=== PATIENT | female | born 1935 | race Caucasian/White ===

== ENCOUNTER → 2018-10-17 08:51 | Outpatient (CLI) | payer MEDICARE, OTHER, SELFPAY ==
--- NOTE | 2018-10-17 | DI.ECHO.S_ITS ---
[facility] +---------+ : : [address] : [address] : : : : [id number] : : : : Phone: [phone]+ Echocardiogram Report + + :Name: CHAYITO ABEBE Study Date: 10/17/2018 Height: 64 in : :[facility] Exam Location: [facility] Weight: 175 lb : : Gender: Female BSA: 1.8 m2 : :: 1935 Age: 83 yrs BP: 147/71 mmHg: :Reason For Study: : : Performed By: Ian Hunt : :Referring: MAINOR CAR : + + Interpretation Summary 1) Mildly increased left ventricular wall thickness with normal size, normal wall motion, and normal systolic function (EF 60-65%). 2) Normal right ventricular size and function. 3) Diastolic parameters suggest a pseudonormalization pattern, consistent with probable elevated filling pressures. 4) There is mild to moderate aortic stenosis (valve area by planimetry is 1.4cm2, mean gradient 21mmHg, calculated valve area underestimated at 0.84cm2). There is mild to moderate aortic regurgitation. 5) No prior Echo available for comparison. Procedure: A two-dimensional transthoracic echocardiogram with color flow and Doppler was performed. The study quality was technically good. There is no prior echocardiogram noted for this patient. The patient was in normal sinus rhythm during the exam. Left Ventricle: The left ventricle is normal in size. Left ventricular wall thickness is mildly increased. The ejection fraction is estimated to be 60- 65%. Left ventricular systolic function is normal. There are no focal wall motion abnormalities. Diastolic parameters suggest a pseudonormalization pattern, consistent with probable elevated filling pressures. Right Ventricle: The right ventricle is normal in size and function. Atria: The left atrium is moderately dilated. The right atrium is normal in size. The interatrial septum is intact with no evidence for an atrial septal defect. Mitral Valve: There is mild mitral annular calcification. There is trace mitral regurgitation. Aortic Valve: The aortic valve is trileaflet. The aortic valve is moderately calcified. The peak aortic velocity is 2.96 m/sec. The aortic valve area is 1.4 centimeters squared by planimetry. There is mild to moderate aortic stenosis. There is mild to moderate aortic regurgitation. Tricuspid Valve: The tricuspid valve is normal in structure and function. There is trace tricuspid regurgitation. The right ventricular systolic pressure is estimated to be at least 27 mmHg based on an estimated right atrial pressure of 3 mm Hg. Pulmonic Valve: The pulmonic valve is normal in structure and function. There is trace pulmonic regurgitation. Great Vessels: The aortic root is normal size. The dimensions of the ascending aorta are normal. The pulmonary artery is normal size. The IVC is of normal diameter and collapses greater than 50% with a sniff. This suggests a low right atrial pressure of 3 mm Hg. Pericardium/ Pleura There is no pericardial effusion. There is no pleural effusion. MMode/2D Measurements & Calculations LVIDd: 4.9 cm LVOT diam: 2.0 cm LVIDs: 3.2 cm Ao root diam: 2.9 cm FS: 35.1 % Aortic Jxn: 2.2 cm EPSS: 0.53 cm asc Aorta Diam: 3.3 cm IVSd: 1.2 cm Ao Arch Diam (Prox Trans): 2.5 cm LVPWd: 1.0 cm LV real. diameter/BSA (cm/m^2): 2.6 LV sys. diameter/BSA (cm/m^2): 1.7 LA dimension: 4.1 cm RA long axis: 5.3 cm LA A2 area: 23.7 cm2 RA area: 19.2 cm2 LA A4 area: 25.9 cm2 RA vol: 58.6 ml LA length (vol): 6.1 cm RA : 31.7 ml/m2 LA vol: 85.4 ml IVC diam: 1.8 cm LA vol index: 46.2 ml/m2 STEPHEN (plan): 1.4 cm2 Doppler Measurements & Calculations Ao V2 max: 296.1 cm/sec LVOT Max Boni: 80.0 cm/sec Ao V2 mean: 224.9 cm/sec LV V1 max P.6 mmHg Ao max P.1 mmHg LV V1 VTI: 15.8 cm Ao mean P.1 mmHg STEPHEN(I,D): 0.70 cm2 Ao V2 VTI: 69.8 cm STEPHEN(V,D): 0.84 cm2 sev ratio: 0.23 STEPHEN indexed to BSA (cm^2/m^2): 0.38 AI P1/2t: 460.0 msec AI dec slope: 305.6 cm/sec2 MV E max boni: 138.6 cm/sec TR max boni: 244.3 cm/sec MV A max boni: 113.9 cm/sec TR max P.9 mmHg MV E/A: 1.2 PA V2 max: 94.2 cm/sec Med Peak E' Boni: 3.8 cm/sec PA V2 mean: 65.3 cm/sec E/E' med: 36.3 PA mean P.9 mmHg Lat Peak E' Boni: 5.4 cm/sec PA pr(Accel): 34.1 mmHg E/E' lat: 25.8 PA Accel Time: 0.09 sec E/e' average: 31.1 MV dec time: 0.26 sec MVA(VTI): 1.1 cm2 MV V2 mean: 74.8 cm/sec SV(LVOT): 48.9 ml MV mean P.7 mmHg MV V2 VTI: 43.1 cm Reading Physician:04:23 PM
== END ==
PROVIDERS: PCP Family Medicine; Visit Provider Internal Medicine Cardiovascular Disease
DX: I35.2 Nonrheumatic aortic (valve) stenosis with insufficiency (principal)
CPT/HCPCS: 93306

== ENCOUNTER → 2020-05-26 14:43 | Outpatient (CLI) | payer MEDICARE, OTHER, SELFPAY ==
--- NOTE | 2020-05-26 | DI.ECHO.S_ITS ---
[facility] +---------+ : : [address] : [address] : : : : [id number] : : : : Phone: [phone] +---------+ Echocardiogram Report + + :Name: CHAYITO ABEBE Study Date: 05/26/2020 Height: 64 in : :[facility] ReadingLocation: Weight: 178 lb : : Gender: Female BSA: 1.9 m2 : :: 1935 Age: 84 yrs BP: 153/75 mmHg: :Reason For Study: AORTIC STENOSIS : :Ordering Physician: BOGDAN, : :MAINOR Performed By: Harini De Jesus : :Referring: MAINOR CAR : + + Interpretation Summary 1) Mildly increased left ventricular wall thickness with normal size, and low normal systolic unction (EF 50-55%). 2) Normal right ventricular size and function. 3) Diastolic parameters suggest a pseudonormalization pattern, consistent with probable elevated filling pressures. 4) There is moderate aortic stenosis (mean gradient 25mmHg, calculated valve area underestimated at 0.7cm2), also confirmed visually. There is mild to moderate aortic regurgitation. 5) Hypertension present during the study (BP 153/75mmHg). 6) Compared to the Echo done 10/17/2018, aortic stenosis has increased from mild-moderate to moderate on this study. Procedure: A two-dimensional transthoracic echocardiogram with color flow and Doppler was performed. The study quality was technically adequate. Comparison is made with the echocardiogram of 10/17/2018. The patient was in sinus rhythm with heart rates between 61-92 bpm during the exam. Left Ventricle: The left ventricle is normal in size. Left ventricular wall thickness is mildly increased. The ejection fraction is estimated to be 50- 55%. Septal bounce present. Diastolic parameters suggest a pseudonormalization pattern, consistent with probable elevated filling pressures. Right Ventricle: The right ventricle is normal in size and function. Atria: The left atrium is severely dilated. Right atrial size is normal. There is no Doppler evidence for an interatrial shunt. Mitral Valve: There is moderate calcification extending into the subvalvular apparatus. The mitral valve leaflets appear moderately thickened, but open well. The mitral valve mean gradient is 6.6 mmHg. There is mild mitral regurgitation. Aortic Valve: The aortic valve is moderately calcified. There is moderately reduced leaflet mobility. The peak aortic velocity is 3.4 m/sec. The aortic valve mean gradient is 25 mmHg. There is moderate aortic stenosis. There is mild to moderate aortic regurgitation. Tricuspid Valve: The tricuspid valve is normal in structure and function. There is trace tricuspid regurgitation. Pulmonary artery pressures cannot be estimated because of the lack of a measurable TR jet velocity but the IVC suggests a CVP of around 3 mmHg. Pulmonic Valve: The pulmonic valve leaflets are thin and pliable; valve motion is normal. There is mild pulmonic regurgitation. Great Vessels: The aortic root is normal size. The dimensions of the ascending aorta are normal. The IVC is of normal diameter and collapses greater than 50% with a sniff. This suggests a low right atrial pressure of 3 mm Hg. Pericardium/ Pleura There is no pericardial effusion. There is no pleural effusion. MMode/2D Measurements & Calculations LVIDd: 4.6 cm LVOT diam: 1.9 cm LVIDs: 3.0 cm Ao root diam: 3.0 cm FS: 35.6 % asc Aorta Diam: 3.2 cm EPSS: 1.7 cm IVSd: 1.4 cm LVPWd: 1.1 cm LV real. diameter/BSA (cm/m^2): 2.5 LV sys. diameter/BSA (cm/m^2): 1.6 LA A2 area: 26.7 cm2 RA long axis: 4.6 cm LA A4 area: 21.4 cm2 RA area: 14.6 cm2 LA length (vol): 5.5 cm RA vol: 39.2 ml LA vol: 88.5 ml RA : 21.1 ml/m2 LA vol index: 47.6 ml/m2 IVC diam: 1.6 cm RVD1 (basal): 2.4 cm TAPSE: 2.0 cm Doppler Measurements & Calculations Ao V2 max: 342.1 cm/sec LVOT Max Boni: 83.3 cm/sec Ao V2 mean: 238.4 cm/sec LV V1 max P.8 mmHg Ao max P.8 mmHg LV V1 VTI: 15.9 cm Ao mean P.5 mmHg STEPHEN(I,D): 0.69 cm2 Ao V2 VTI: 63.3 cm STEPHEN(V,D): 0.66 cm2 sev ratio: 0.25 STEPHEN indexed to BSA (cm^2/m^2): 0.37 AI P1/2t: 465.6 msec AI dec slope: 274.1 cm/sec2 MV E max boni: 108.0 cm/sec PA V2 max: 140.6 cm/sec MV A max boni: 149.5 cm/sec PA V2 mean: 84.3 cm/sec MV E/A: 0.72 PA mean P.3 mmHg Med Peak E' Boni: 3.1 cm/sec PA pr(Accel): 37.9 mmHg E/E' med: 35.0 Lat Peak E' Boni: 6.3 cm/sec E/E' lat: 17.2 E/e' average: 26.1 MV dec time: 0.27 sec MVA(VTI): 1.2 cm2 MV V2 mean: 121.1 cm/sec SV(LVOT): 43.4 ml MV mean P.6 mmHg MV V2 VTI: 35.7 cm Reading Physician:11:33 AM
== END ==
PROVIDERS: PCP Family Medicine; Referring Provider Internal Medicine Cardiovascular Disease; Visit Provider Internal Medicine Cardiovascular Disease
DX: I08.0 Rheumatic disorders of both mitral and aortic valves (principal)
CPT/HCPCS: 93306

== ENCOUNTER → 2021-07-01 13:00 | Outpatient (CLI) | payer MEDICARE, OTHER, SELFPAY ==
--- NOTE | 2021-07-01 13:04 | DI.ECHO.S_ITS ---
[facility]---------+ [facility] +---------+ : : [address] : [address] : [address] : : : : [id number] : : : : Phone: [phone] : : [phone] +---------+ Echocardiogram Report + + :Name: CHAYITO ABEBE Study Date: 07/01/2021 Height: 64 in : :[facility] ReadingLocation: Weight: 170 lb : : Gender: Female BSA: 1.8 m2 : :: 1935 Age: 86 yrs BP: 181/92 mmHg: :Reason For Study: Aortic valve stenosis : :Ordering Physician: Mainor : :Tomas Car Performed By: Greg Pulido : :Referring: MAINOR CAR : + + Interpretation Summary 1) Mildly increased left ventricular wall thickness (concentric) with normal size, and mildly to moderately reduced systolic unction (EF 40-45%). 2) Normal right ventricular size and function. 3) Diastolic parameters suggest a pseudonormalization pattern, consistent with probable elevated filling pressures. 4) There is moderate aortic stenosis (mean gradient 27.5mmHg, calculated valve area underestimated at 0.8cm2, severity ratio 0.28), also confirmed visually. There is mild to moderate aortic regurgitation. 5) Hypertension present during the study (BP 181/92mmHg). 6) Compared to the Echo done 05/26/2020, LVEF has decreased from 50-55% to 40- 45% on this study. Procedure: A two-dimensional transthoracic echocardiogram with color flow and Doppler was performed. The study quality was technically adequate. Comparison is made with the echocardiogram of 05/26/2020. Left Ventricle: The left ventricle is normal in size. There is mild concentric left ventricular hypertrophy. Left ventricular systolic function is mild to moderately reduced. The ejection fraction is estimated to be 40-45%. There is mild to moderate global hypokinesis of the left ventricle. Diastolic parameters suggest a pseudonormalization pattern, consistent with probable elevated filling pressures. Right Ventricle: The right ventricle is normal in size and function. Atria: The left atrium is moderately dilated. Right atrial size is normal. The interatrial septum grossly appears intact with no obvious evidence for an atrial septal defect. Mitral Valve: There is moderate mitral annular calcification. There is mild mitral regurgitation. Aortic Valve: The aortic valve is moderately calcified. There is moderate aortic stenosis. The aortic valve mean gradient is 27 mmHg. There is mild to moderate aortic regurgitation. Tricuspid Valve: The tricuspid valve is normal in structure and function. There is mild tricuspid regurgitation. Pulmonary artery pressures cannot be estimated because of the lack of a measurable TR jet velocity. Pulmonic Valve: The pulmonic valve is normal in structure and function. There is no pulmonic valvular regurgitation. Great Vessels: The aortic root is normal size. The dimensions of the ascending aorta are normal. The IVC is of normal diameter and collapses greater than 50% with a sniff. This suggests a low right atrial pressure of 3 mm Hg. Pericardium/ Pleura There is no pericardial effusion. There is no pleural effusion. MMode/2D Measurements & Calculations LVIDd: 5.0 cm LVOT diam: 1.9 cm LVIDs: 3.8 cm Ao root diam: 2.9 cm FS: 24.0 % asc Aorta Diam: 3.2 cm IVSd: 1.3 cm LVPWd: 1.3 cm LV real. diameter/BSA (cm/m^2): 2.7 LV sys. diameter/BSA (cm/m^2): 2.1 LA A2 area: 21.1 cm2 RA long axis: 5.5 cm LA A4 area: 25.7 cm2 LA length (vol): 6.1 cm LA vol: 76.0 ml LA vol index: 41.6 ml/m2 LVLs ap4: 7.1 cm LVLd ap2: 9.1 cm LVLs ap2: 8.0 cm TAPSE_phl: 2.7 cm Doppler Measurements & Calculations Ao V2 max: 346.5 cm/sec LVOT Max Boni: 99.2 cm/sec Ao V2 mean: 250.5 cm/sec LV V1 max P.9 mmHg Ao max P.0 mmHg LV V1 VTI: 21.1 cm Ao mean P.5 mmHg STEPHEN(I,D): 0.80 cm2 Ao V2 VTI: 75.0 cm STEPHEN(V,D): 0.81 cm2 sev ratio: 0.28 STEPHEN indexed to BSA (cm^2/m^2): 0.44 AI P1/2t: 379.1 msec AI dec slope: 343.0 cm/sec2 MV E max boni: 135.0 cm/sec SV(LVOT): 59.8 ml MV A max boni: 163.0 cm/sec MV E/A: 0.83 Med Peak E' Boni: 2.7 cm/sec E/E' med: 49.8 Lat Peak E' Boni: 5.2 cm/sec E/E' lat: 25.9 E/e' average: 37.8 MV dec time: 0.25 sec AV P1/2t-pr_phl: 380.0 msec MV P1/2t-pr_phl: 72.0 msec AV VR_phl: 0.29 STEPHEN(VTI)/BSA_phl: 0.44 Reading Physician:04:05 PM
== END ==
PROVIDERS: PCP Family Medicine; Referring Provider Internal Medicine Cardiovascular Disease; Visit Provider Internal Medicine Cardiovascular Disease
DX: I08.3 Combined rheumatic disorders of mitral, aortic and tricuspid valves (principal)
CPT/HCPCS: 93306; Q9957

== ENCOUNTER → 2023-04-21 13:34 | Outpatient (CLI) | payer MEDICARE, OTHER, SELFPAY ==
--- NOTE | 2023-04-21 | DI.MRI.S_ITS ---
PROCEDURE: MR HEAD/BRAIN WO CON INDICATIONS: Dizziness and giddiness TECHNIQUE: Non-contrast axial T1 spin echo, axial T2 fast spin echo, sagittal and axial FLAIR, coronal T2 fast spin echo, axial gradient echo, axial diffusion and ADC through the brain. COMPARISON: None. FINDINGS: Image quality: Excellent. CSF spaces: Ventricles appear symmetric in size and shape. Basal cisterns are patent. No extra-axial fluid collections. Brain: Small extra-axial lesion within the right posterior fossa possibly arising from the tentorium (10/11, 11/22). This lesion measures approximately 8 x 10 x 9 mm. Otherwise, no intracranial bleeds or mass effects. There is cerebral volume loss for age. There are periventricular and deep white matter chronic small vessel ischemic changes. Brainstem appears normal. Diffusion-weighted images show no acute infarct. No chronic ischemic insults. Normal intravascular flow voids are present. Skull and face: Calvarial bone marrow is normal in signal. Bilateral lens replacements. Otherwise, the orbits are unremarkable. Sinuses: Sinuses and mastoids are clear. IMPRESSION: Small extra-axial lesion in the right posterior fossa measure up to 10 mm. This may represent a meningioma. Recommend further evaluation with contrast enhanced exam. Otherwise, no acute intracranial abnormalities. No cause for patient's symptoms is identified. Dictated by: Delbert Rangel M.D. on 04/21/2023 at 14:53 Approved by: Delbert Rangel M.D. on 04/21/2023 at 14:56
== END ==
PROVIDERS: PCP Family Medicine; Referring Provider Family Medicine; Visit Provider Family Medicine
DX: G93.9 Disorder of brain, unspecified (principal); R42 Dizziness and giddiness; R55 Syncope and collapse; R11.0 Nausea; R26.89 Other abnormalities of gait and mobility
CPT/HCPCS: 70551

== ENCOUNTER → 2024-04-01 07:56 | Outpatient (CLI) | payer MEDICARE, OTHER, SELFPAY ==
--- NOTE | 2024-04-01 08:13 | DI.ECHO.S_ITS ---
[facility] : : [address] : : [facility] : : [place], : : [place] [address] : : Phone: [phone] Echocardiogram Report + + :Name: CHAYITO ABEBE Study Date: 04/01/2024 Height: 64 in : :[facility] ReadingLocation: Weight: 160 lb : : Gender: Female BSA: 1.8 m2 : :: 1935 Age: 88 yrs BP: 206/89 mmHg: :Reason For Study: DIZZINESS : :Ordering Physician: OBGDAN, : :MAINOR Performed By: Anthony Cullen : :Referring: MAINOR CAR : + + Interpretation Summary 1) Mildly to moderately increased left ventricular thickness (concentric) with normal size, normal wall motion, and systolic function (EF 55-60%). 2) Normal right ventricular size and function. 3) There is moderate to severe aortic stenosis (valve area 0.9cm2, mean gradient 32mmHg, severity ratio 0.28). 4) There is mild to moderate aortic regurgitation. 5) Compared to the Echo done 05/26/2020, aortic stenosis has progressed from moderate to moderate-severe on this study. Procedure: A two-dimensional transthoracic echocardiogram with color flow and Doppler was performed. The study quality was technically good. Comparison is made with the echocardiogram of 05/26/2020. The patient was in normal sinus rhythm during the exam. Left Ventricle: The left ventricle is normal in size. There is mild-moderate concentric left ventricular hypertrophy. There is no ventricular septal defect visualized. The ejection fraction is estimated to be 55-60%. Left ventricular systolic function appears normal without focal wall motion abnormalities. Right Ventricle: The right ventricle is normal in size and function. Atria: The left atrium is moderately dilated. Right atrial size is normal. There is no Doppler evidence for an interatrial shunt. Mitral Valve: There is moderate mitral annular calcification. The mitral valve leaflets appear moderately thickened, but open well. There is trace mitral regurgitation. Aortic Valve: The aortic valve is moderately calcified. There is moderate to severely reduced leaflet mobility. There is moderate to severe aortic stenosis. The peak aortic velocity is 3.7 m/sec. The aortic valve mean gradient is 32.1 mmHg. The calculated aortic valve area is 0.9 cm2. There is mild to moderate aortic regurgitation. Tricuspid Valve: The tricuspid valve leaflets are thin and pliable. There is mild tricuspid regurgitation. The right ventricular systolic pressure is estimated to be at least 32 mmHg based on an estimated right atrial pressure of 3 mm Hg. Pulmonic Valve: The pulmonic valve leaflets are thin and pliable; valve motion is normal. There is trace pulmonic regurgitation. Great Vessels: The aortic root is normal size. The dimensions of the ascending aorta are normal. The pulmonary artery is normal size. The IVC is of normal diameter and collapses greater than 50% with a sniff. This suggests a low right atrial pressure of 3 mm Hg. Pericardium/ Pleura There is no pericardial effusion. There is no pleural effusion. MMode/2D Measurements & Calculations LVIDd: 3.7 cm AoV Openin.1 cm LVIDs: 2.4 cm LVOT diam: 2.0 cm IVSd: 1.4 cm Ao root diam: 3.1 cm LVPWd: 1.4 cm asc Aorta Diam: 3.2 cm LV real. diameter/BSA (cm/m^2): 2.1 Ao Arch Diam (Prox Trans): 1.6 cm LV sys. diameter/BSA (cm/m^2): 1.4 FS: 34.3 % EPSS: 0.68 cm LA A2 area: 22.8 cm2 RA long axis: 5.3 cm LA A4 area: 24.5 cm2 RA area: 15.8 cm2 LA length (vol): 6.0 cm RA vol: 39.9 ml LA vol: 79.3 ml RA : 22.4 ml/m2 LA vol index: 44.6 ml/m2 RVD1 (basal): 3.9 cm IVC diam: 1.1 cm RVD2 (mid): 2.6 cm Doppler Measurements & Calculations Ao V2 max: 371.5 cm/sec LVOT Max Boni: 99.9 cm/sec Ao V2 mean: 270.9 cm/sec LV V1 max P.0 mmHg Ao V2 VTI: 90.7 cm LV V1 VTI: 25.5 cm Ao max P.2 mmHg Ao mean P.1 mmHg STEPHEN(I,D): 0.91 cm2 AI P1/2t: 435.0 msec STEPHEN(V,D): 0.87 cm2 AI dec slope: 321.9 cm/sec2 STEPHEN indexed to BSA (cm^2/m^2): 0.51 sev ratio: 0.28 MV E max boni: 113.6 cm/sec MV dec time: 0.32 sec MV A max boni: 139.9 cm/sec MV mean P.1 mmHg MV E/A: 0.81 MVA(VTI): 1.6 cm2 Med Peak E' Boni: 2.9 cm/sec E/E' med: 39.0 Lat Peak E' Boni: 4.9 cm/sec E/E' lat: 23.0 E/e' average: 31.0 TR max boni: 268.8 cm/sec PA V2 max: 82.5 cm/sec TR max P.9 mmHg PA V2 mean: 49.0 cm/sec PA mean P.2 mmHg PA pr(Accel): 32.8 mmHg MV V2 mean: 93.3 cm/sec SV(LVOT): 82.2 ml MV V2 VTI: 50.8 cm Reading Physician:09:44 AM
== END ==
LOC: ECHO 07:58
PROVIDERS: PCP Family Medicine; Referring Provider Internal Medicine Cardiovascular Disease; Visit Provider Internal Medicine Cardiovascular Disease
DX: I08.3 Combined rheumatic disorders of mitral, aortic and tricuspid valves (principal); R42 Dizziness and giddiness
CPT/HCPCS: 93306

== ENCOUNTER → 2024-04-18 11:49 | Outpatient (CLI) | payer MEDICARE, OTHER, SELFPAY ==
--- NOTE | 2024-04-18 11:51 | DI.CT.S_ITS ---
PROCEDURE: CT CHEST HIGH RESOLUTION INDICATIONS: ILD TECHNIQUE: Noncontrast 1.0 and 5.0 mm thick contiguous axial sections from the pulmonary apex to the posterior costophrenic angles, with 7 mm thick coronal and sagittal MIP reformats. 1 mm thick dynamic expiratory images acquired through the upper, mid, and lower lungs. 1.0 mm thick axial sections acquired from the trell to the posterior costophrenic angles in the prone end-inspiration position. For radiation dose reduction, the following was used: automated exposure control, adjustment of mA and/or kV according to patient size. COMPARISON: None. FINDINGS: Image quality: Diagnostic. Lower Neck: No enlarged lymph nodes. Thyroid: Normal CT appearance. Axillae: No enlarged lymph nodes. Chest Wall: Unremarkable. Bones: Focal rightward scoliosis and severe degenerative disc change in the endplates at T8-9. No suspicious bone lesions. Lungs and Pleura: Circumferential and bilateral irregular subpleural reticulation throughout the lungs without a distinct basal predominance. There is probable mild peripheral traction bronchiectasis primarily involving the upper lobes anteriorly. No definite honeycombing. There is prominent air trapping on expiratory imaging throughout the lungs. There are no acute ground-glass opacities or dense consolidations. No suspicious nodules or masses. Occasional right lung calcifications. Heart: The heart is mildly enlarged. There is heavy coronary artery calcification and dense mitral annular calcification. No pericardial effusion. Thoracic Vessels: The aorta and pulmonary arteries demonstrate normal size. Moderate aortic valvular calcification. Mediastinum and Tyesha: No enlarged lymph nodes. Esophagus: No wall thickening. Small hiatal hernia. Upper Abdomen: Cholecystectomy changes. Visible portions of upper abdominal organs are otherwise normal. IMPRESSION: Peripheral reticulation without a distinct basal predominance. Findings are not consistent at this point with UIP and more consistent with NSIP. Early UIP cannot be excluded. Given presence of air trapping, hypersensitivity pneumonitis, connective tissue disease, or drug toxicity should be considered. Heavy coronary artery calcification and valvular calcification. Dictated by: Preeti Mena M.D. on 04/18/2024 at 18:38 Approved by: Preeti Mena M.D. on 04/18/2024 at 18:49
== END ==
PROVIDERS: PCP Family Medicine; Referring Provider Internal Medicine Cardiovascular Disease; Visit Provider Internal Medicine Cardiovascular Disease
DX: J84.9 Interstitial pulmonary disease, unspecified (principal); I42.9 Cardiomyopathy, unspecified; I25.10 Atherosclerotic heart disease of native coronary artery without angina pectoris; I34.81 Nonrheumatic mitral (valve) annulus calcification; K44.9 Diaphragmatic hernia without obstruction or gangrene; I51.7 Cardiomegaly
CPT/HCPCS: 71250